=== PATIENT | female | born 1990 | race Caucasian/White ===

== ENCOUNTER 2016-09-16 20:49 | Emergency (ER) | payer OTHER ==
[2016-09-16 23:19] VITALS: BP 138/78
== END 2016-09-16 23:19 | disposition home or self-care (01) ==
LOC: ED 20:49
DX: J03.90 Acute tonsillitis, unspecified (principal)

== ENCOUNTER 2018-04-21 18:23 | Emergency (ER) | payer OTHER ==
[~2018-04-21] VITALS: Ht 157.5 cm; Wt 100.7 kg
[2018-04-21 18:31] VITALS: Ht 157.5 cm; Wt 100.7 kg
[2018-04-21 19:15] LABS: BASOPHIL % 0.3 % (0-2); PLATELET COUNT 339 x10^3mcL (130-400); RED CELL DISTRIBUTION WIDTH 13.7 % (11.5-14.5)
[2018-04-21 19:19] LABS: CALCIUM 9.4 mg/dL (8.5-10.1); CARBON DIOXIDE 28.5 mmol/L (21-32); CHLORIDE SERUM 101 mmol/L (98-107); CREATININE SERUM 0.7 mg/dL (0.6-1.0); GFR1 > 60 mL/min; GLUCOSE SERUM 90 mg/dL (74-106); POTASSIUM SERUM 3.6 mmol/L (3.5-5.1); SODIUM SERUM 138 mmol/L (136-145)
[2018-04-21 19:25] LABS: ALBUMIN 3.6 g/dL (3.4-5.0); ALKALINE PHOSPHATASE 77 U/L (46-116); ALT/SGPT 22 U/L (14-59); AMYLASE 31 U/L (25-115); AST/SGOT 14 U/L (15-37); BILIRUBIN TOTAL 0.2 mg/dL (0.20-1.00); LIPASE 106 IU/L (73-393); TOTAL PROTEIN, SERUM 8.8 g/dL (6.4-8.2)
[2018-04-21 20:03] LABS: AMPHETAMINE QUAL UR NONE DETECTED (See below)
[2018-04-21 20:12] VITALS: BP 126/78
== END 2018-04-21 20:12 | disposition home or self-care (01) ==
LOC: ED 18:23
PROVIDERS: Emergency Medicine
DX: R07.89 Other chest pain (principal); R63.0 Anorexia
CPT/HCPCS: 36415; 85378; G0480